=== PATIENT | male | born 1955 | race Caucasian/White ===

== ENCOUNTER 2018-08-25 16:42 | Emergency (ER) | payer OTHER ==
[~2018-08-25] VITALS: Ht 180.3 cm; Wt 84.0 kg
[~2018-08-25 16:42] MED LIST: AMLO5TAB16 PO; COR3.125T PO
[2018-08-25 16:44] VITALS: BP 183/119
== END 2018-08-25 17:02 ==
LOC: ER 16:43
DX: S00.81XA Abrasion of other part of head, initial encounter (principal); I10 Essential (primary) hypertension; G89.29 Other chronic pain; Z88.8 Allergy status to other drugs, medicaments and biological substances; Z79.899 Other long term (current) drug therapy; W01.198A Fall on same level from slipping, tripping and stumbling with subsequent striking against other object, initial encounter; Y93.89 Activity, other specified; Y92.89 Other specified places as the place of occurrence of the external cause; Y99.8 Other external cause status
CPT/HCPCS: 99283

== ENCOUNTER 2019-10-03 13:03 | Inpatient (IN) | payer OTHER ==
[2019-10-03] VITALS (10 sets, daily range): BP systolic 134–230; BP diastolic 86–160
[~2019-10-03] VITALS: Ht 175.3 cm; Wt 73.0 kg
[2019-10-03] MEDS ORDERED: aspirin 81mg tab.chew PO ONE (13:20)
[2019-10-03] MEDS ORDERED: metoprolol tartrate 1mg/ml inj IV ONE ×3 (13:20→18:55)
[2019-10-03 13:46] LABS: BASOPHILS # (AUTO) 0.1 X10'3 (0-0.2); BASOPHILS % (AUTO) 0.6 % (0-1); EOSINOPHILS % (AUTO) 0.3 % (0-6); HEMATOCRIT 35.6 % (42.0-52.0); HEMOGLOBIN 12.3 g/dl (14.0-17.9); LYMPHOCYTES # (AUTO) 1.9 X10'3 (1.1-4.8); LYMPHOCYTES % (AUTO) 16.1 % (21-51); MEAN CORPUSCULAR HGB CONC 34.6 g/dL (33.0-36.5); MEAN CORPUSCULAR VOLUME 92.7 FL (78-98); MEAN PLATELET VOLUME 8.6 FL (7.4-10.4); MONOCYTES # (AUTO) 1.3 X10'3 (0-0.9); MONOCYTES % (AUTO) 11.5 % (2-12); NEUTROPHILS # (AUTO) 8.3 X10'3 (1.8-7.7); NEUTROPHILS % (AUTO) 71.5 % (42-75); PLATELET COUNT 120 X10'3 (140-440); RED BLOOD COUNT 3.84 X10'6 (4.70-6.10); RED CELL DISTRIBUTION WIDTH 13.7 % (11.5-14.5); WHITE BLOOD COUNT 11.6 X10'3 (4.5-11.0)
[2019-10-03 14:04] LABS: ALANINE AMINOTRANSFERASE 27 U/L (12-78); ALBUMIN 3.5 G/DL (3.4-5.0); ALKALINE PHOSPHATASE 146 IU/L (46-116); ANION GAP 10 (8-16); ASPARTATE AMINO TRANSFERASE 35 U/L (10-37); BLOOD UREA NITROGEN 24 MG/DL (7-18); BUN/CREATININE RATIO 14.5 (5.4-32.0); CALCIUM 8.6 MG/DL (8.5-10.1); CHLORIDE 102 MMOL/L (99-107); CREATININE 1.65 MG/DL (0.60-1.10); GLUCOSE 98 MG/DL (70-104); POTASSIUM 3.1 MMOL/L (3.5-5.1); SODIUM 138 MMOL/L (135-145); TOTAL PROTEIN 7.1 G/DL (6.4-8.2); eGFR 42 ML/MIN
[2019-10-03] MEDS ORDERED: nitroGLYCERIN 1gm ointment UD TP ONE (14:10)
[2019-10-03] MEDS ORDERED: heparin 25,000 UNIT/250ml bag 250 ML IV SCH (14:13)
[2019-10-03] MEDS ORDERED: heparin 10,000 units/1 ML INJ IV ONE ×2 (14:15→14:25)
[2019-10-03] MEDS ORDERED: potassium Cl 20 mEq SR tablet PO STA (14:19)
[2019-10-03] MEDS ORDERED: iohexol 350MG/ML 100ml bottle IV ONE (14:30)
[2019-10-03 14:37] LABS: ETHANOL < 0.010 GM/DL (0.0-0.010)
[2019-10-03 14:40] LABS: CLARITY,URINE CLEAR (Clear); COLOR,URINE YELLOW (Yellow); GLUCOSE, URINE NEGATIVE (Neg); KETONES,URINE NEGATIVE (Neg); LEUKOCYTE ESTERASE ,URINE NEGATIVE (Neg); NITRITES, URINE NEGATIVE (Neg); OCCULT BLOOD,URINE SMALL (Neg); PROTEIN,URINE >=300 mg/dl (Neg)
[2019-10-03 14:42] LABS: UA COLLECTION TYPE CLN CATCH MIDSTREAM
[2019-10-03 14:46] LABS: PARTIAL THROMBOPLASTIN TIME 31 SECONDS (22-32)
[2019-10-03 14:58] LABS: SQUAMOUS EPITHELIAL CELL,UR FEW /LPF (FEW)
[2019-10-03 15:00] LABS: RBC,URINE 0-2 /HPF (0-2); TRANSITIONAL EPI CELLS,URINE FEW /HPF; WBC,URINE 0-4 /HPF (0-4)
[2019-10-03 15:01] LABS: BACTERIA,URINE FEW /HPF (Neg)
[2019-10-03 15:02] LABS: COARSE GRANULAR CAST 0-3 /LPF (NEGATIVE); MUCUS STRANDS MANY /LPF (Neg)
[2019-10-03] MEDS ORDERED: nitroGLYCERIN-Tridil 50MG/D5W 250 ML IV SCH (15:20)
[2019-10-03] MEDS ORDERED: AMLO10TA PO (16:08)
[2019-10-03] MEDS ORDERED: CARV6.253 PO (16:08)
[2019-10-03] MEDS ORDERED: hydrALAZINE 20mg/ml inj. IV ONE (16:45)
[2019-10-03] MEDS ORDERED: ondansetron/PF 4mg/2ml inj IV ONE (17:20)
[2019-10-03] MEDS ORDERED: magnesium 4gm in 100ml NS 100 ML IV PRN (17:25)
[2019-10-03] MEDS ORDERED: magnesium Cl slow-release 64mg tablet PO PRN (17:25)
[2019-10-03] MEDS ORDERED: magnesium 2GM in 50ml NS 50 ML IV PRN (17:25)
[2019-10-03] MEDS ORDERED: potassium Cl 20 mEq SR tablet PO PRN (17:25)
[2019-10-03] MEDS ORDERED: ondansetron/PF 4mg/2ml inj IV PRN (17:25)
[2019-10-03] MEDS ORDERED: potassium CL 10mEq/100ml bag 100 ML IV PRN ×2 (17:25)
--- NOTE | 2019-10-03 18:00 | NUR ---
Patient in room PCU 3027. I have received report from YOLY Sigala and had the opportunity to ask questions and assume patient care.
[2019-10-03 18:05] LABS: URINE AMPHETAMINE SCREEN POSITIVE (Neg); URINE BARBITUATE SCREEN NEGATIVE (Neg); URINE BENZODIAZEPINES SCREEN NEGATIVE (Neg); URINE CANNABINOID SCREEN NEGATIVE (Neg); URINE COCAINE SCREEN NEGATIVE (Neg); URINE METHADONE SCREEN NEGATIVE (Neg); URINE OPIATE SCREEN NEGATIVE (Neg); URINE PHENCYCLIDINE SCREEN NEGATIVE (Neg)
[2019-10-03] MEDS ORDERED: cloNIDine 0.1 mg tablet PO SCH (18:35)
--- NOTE | 2019-10-03 18:45 | NUR ---
Patient in room PCU 3027. I have received report from YOLY Sigala and had the opportunity to ask questions and assume patient care.
--- NOTE | 2019-10-03 18:45 | NUR ---
Problems reprioritized. Patient report given, questions answered & plan of care reviewed with Kathy FREDERICK.
--- NOTE | 2019-10-03 18:49 | NUR ---
Orientee documentation: I have reviewed and agree with interventions, assessments performed and documented by Basilia FREDERICK. Orientee Medication Administration: For this medication-pass time frame, medication were reviewed, dispensed, administered and documented per hospital policy by Basilia FREDERICK.
[2019-10-03] MEDS ORDERED: amLODIPine 5mg tablet PO ONE (19:45)
[2019-10-03] MEDS: heparin, porcine 5000 units/ml vial SQ SCH (20:10)
[2019-10-04] VITALS (22 sets, daily range): BP systolic 123–201; BP diastolic 73–138
[2019-10-04] MEDS: potassium Cl 20 mEq SR tablet PO PRN ×4 (01:28→19:51)
--- NOTE | 2019-10-04 01:34 | NUR ---
Informed Dr. Mccollum of patient's high systolic BP. He is aware and no orders were placed.
--- NOTE | 2019-10-04 01:34 | NUR ---
Patient BP extremely high upon admit to the floor, AT SHIFT CHANGE WHICH IS VERY DANGEROUS WHEN NURSES ARE TRYING TO GIVE REPORT. Patient brought up on Nitro drip at 30, heparin drip at 900, imaging was negative for PE/DVT so heparin drip DC'D. Patient potassium low and being replaced.
[2019-10-04] MEDS: acetaminophen 325mg tablet PO PRN ×2 (04:32→19:42)
[2019-10-04] MEDS ORDERED: amLODIPine 5mg tablet PO ONE ×2 (04:38→07:30)
[2019-10-04 05:11] LABS: BASOPHILS % (AUTO) 0.3 % (0-1); EOSINOPHILS % (AUTO) 0.2 % (0-6); HEMATOCRIT 31.2 % (42.0-52.0); HEMOGLOBIN 10.6 g/dl (14.0-17.9); LYMPHOCYTES # (AUTO) 1.7 X10'3 (1.1-4.8); LYMPHOCYTES % (AUTO) 14.4 % (21-51); MEAN CORPUSCULAR HEMOGLOBIN 31.6 PG (27.0-31.0); MEAN CORPUSCULAR HGB CONC 34.1 g/dL (33.0-36.5); MEAN CORPUSCULAR VOLUME 92.8 FL (78-98); MEAN PLATELET VOLUME 9.3 FL (7.4-10.4); MONOCYTES # (AUTO) 1.6 X10'3 (0-0.9); MONOCYTES % (AUTO) 12.8 % (2-12); NEUTROPHILS # (AUTO) 8.8 X10'3 (1.8-7.7); NEUTROPHILS % (AUTO) 72.3 % (42-75); PLATELET COUNT 130 X10'3 (140-440); RED BLOOD COUNT 3.36 X10'6 (4.70-6.10); RED CELL DISTRIBUTION WIDTH 13.4 % (11.5-14.5); WHITE BLOOD COUNT 12.2 X10'3 (4.5-11.0)
[2019-10-04 05:19] LABS: ANION GAP 12 (8-16); BLOOD UREA NITROGEN 23 MG/DL (7-18); BUN/CREATININE RATIO 14.2 (5.4-32.0); CALCIUM 8.5 MG/DL (8.5-10.1); CHLORIDE 104 MMOL/L (99-107); CREATININE 1.62 MG/DL (0.60-1.10); GLUCOSE 122 MG/DL (70-104); MAGNESIUM 2.1 MG/DL (1.5-2.4); POTASSIUM 3.1 MMOL/L (3.5-5.1); SODIUM 139 MMOL/L (135-145); TOTAL CARBON DIOXIDE 23.3 MMOL/L (24-32); eGFR 43 ML/MIN
--- NOTE | 2019-10-04 05:26 | NUR ---
it is possible that this patient has undiagnosed sleep apnea. Noted respirations dropped at times and it was a longer period before breathing again at times, Pt stated he does not have apnea diagnosis.
--- NOTE | 2019-10-04 05:30 | NUR ---
CALLED Santos, GAVE AMLODIPINE, BLOOD PRESSURE STILL ELEVATED, HE SAID THE MEDICATION NEEDS MORE TIME TO WORK.
--- NOTE | 2019-10-04 06:31 | NUR ---
Patient in room PCU 3027. I have received report from YOLY Sigala and had the opportunity to ask questions and assume patient care.
--- NOTE | 2019-10-04 06:46 | NUR ---
Patient in room PCU 3027. I have received report from YOLY Chavez and had the opportunity to ask questions and assume patient care. Patient asleep in bed and in no acute distress.
--- NOTE | 2019-10-04 07:15 | NUR ---
Paged Dr. Cedillo regarding patient's BP. PAGER ID: [phone] MESSAGE: Johnny Nixon. Rm. [id number]. Patient's manual BP on both arms are 200/120. Thanks. Basilia FREDERICK x [phone]
[2019-10-04] MEDS ORDERED: metoprolol tartrate 1mg/ml inj IV ONE (07:30)
[2019-10-04] MEDS ORDERED: cloNIDine 0.1 mg tablet PO ONE (07:30)
--- NOTE | 2019-10-04 07:30 | NUR ---
Orders for metoprolol 10mg, norvasc 5mg, and clonidine 0.3mg put in per Dr. Cedillo.
[2019-10-04] MEDS: heparin, porcine 5000 units/ml vial SQ SCH ×2 (07:48→19:40)
[2019-10-04] MEDS ORDERED: metoprolol tartrate 50mg tablet PO SCH (08:00)
[2019-10-04] MEDS: K and/or MAG REPLACEMENT MC SCH (08:00)
--- NOTE | 2019-10-04 08:00 | NUR ---
Per Monalisa Werner, monitor patient's vitals before giving his dose of amlodipine and coreg this morning.
--- NOTE | 2019-10-04 09:31 | NUR ---
Paged Dr. Cedillo regarding patient's BP. PAGER ID: [phone] MESSAGE: Johnny Nixon. Rm. [phone]. Patient's manual BP has come down to 142/92. Thank you. Basilia FREDERICK x [phone]
[2019-10-04] MEDS: carvedilol 6.25mg tablet PO SCH ×2 (11:00→19:39)
[2019-10-04] MEDS: amLODIPine 5mg tablet PO SCH (11:00)
[2019-10-04] MEDS: cloNIDine 0.1 mg tablet PO SCH ×2 (12:38→21:48)
--- NOTE | 2019-10-04 16:30 | NUR ---
Spoke with Dr. Cedillo via telephone, informed the MD of the patients BP 124/76. New orders: reduce the NTG gtt to 10mcg/min aka 3mL/hr. Will follow orders and address patients medication changes. Patient is sitting at the bedside in his chair napping, there is a chest rise/fall present. Will continue to monitor patient.
[2019-10-04] MEDS ORDERED: furosemide 20 MG/2 ML vial IV ONE (16:35)
[2019-10-04] MEDS: nitroGLYCERIN-Tridil 50MG/D5W 250 ML IV SCH (16:43)
--- NOTE | 2019-10-04 17:56 | NUR ---
Orientee documentation: I have reviewed and agree with all interventions, assessments performed and documented by Kristy Freire RN. Orientee Medication Administration: For this medication-pass time frame, all medication were reviewed, dispensed, administered and documented per hospital policy by Kristy Freire RN.
--- NOTE | 2019-10-04 18:31 | NUR ---
Problems reprioritized. Patient report given, questions answered & plan of care reviewed with YOLY Ma. Patient stable at transfer of care.
[2019-10-05] VITALS (14 sets, daily range): BP systolic 111–141; BP diastolic 69–100
[2019-10-05] MEDS: nitroGLYCERIN-Tridil 50MG/D5W 250 ML IV SCH (03:22)
--- NOTE | 2019-10-05 05:09 | NUR ---
Patient in room PCU 3027. I have received report from Zakiya FREDERICK and Basilia West RN and had the opportunity to ask questions and assume patient care.
[2019-10-05 05:58] LABS: BASOPHILS % (AUTO) 0.3 % (0-1); EOSINOPHILS # (AUTO) 0.1 X10'3 (0-0.9); EOSINOPHILS % (AUTO) 0.5 % (0-6); HEMATOCRIT 29.5 % (42.0-52.0); HEMOGLOBIN 10.2 g/dl (14.0-17.9); LYMPHOCYTES # (AUTO) 1.7 X10'3 (1.1-4.8); LYMPHOCYTES % (AUTO) 16.4 % (21-51); MEAN CORPUSCULAR HEMOGLOBIN 32.2 PG (27.0-31.0); MEAN CORPUSCULAR HGB CONC 34.4 g/dL (33.0-36.5); MEAN CORPUSCULAR VOLUME 93.5 FL (78-98); MEAN PLATELET VOLUME 9.5 FL (7.4-10.4); MONOCYTES # (AUTO) 1.3 X10'3 (0-0.9); NEUTROPHILS # (AUTO) 7.4 X10'3 (1.8-7.7); NEUTROPHILS % (AUTO) 70.8 % (42-75); PLATELET COUNT 132 X10'3 (140-440); RED BLOOD COUNT 3.16 X10'6 (4.70-6.10); RED CELL DISTRIBUTION WIDTH 13.8 % (11.5-14.5); WHITE BLOOD COUNT 10.5 X10'3 (4.5-11.0)
[2019-10-05 05:59] LABS: ALBUMIN 2.9 G/DL (3.4-5.0); ANION GAP 12 (8-16); BLOOD UREA NITROGEN 29 MG/DL (7-18); BUN/CREATININE RATIO 16.3 (5.4-32.0); CALCIUM 8.5 MG/DL (8.5-10.1); CHLORIDE 104 MMOL/L (99-107); CREATININE 1.78 MG/DL (0.60-1.10); GLUCOSE 108 MG/DL (70-104); MAGNESIUM 2.2 MG/DL (1.5-2.4); POTASSIUM 3.4 MMOL/L (3.5-5.1); SODIUM 138 MMOL/L (135-145); TOTAL CARBON DIOXIDE 22.4 MMOL/L (24-32); eGFR 39 ML/MIN
--- NOTE | 2019-10-05 06:15 | NUR ---
Patient in room PCU 3027. I have received report from Eli and had the opportunity to ask questions and assume patient care.
--- NOTE | 2019-10-05 06:28 | NUR ---
Problems reprioritized. Patient report given, questions answered & plan of care reviewed with YOLY Bella.
--- NOTE | 2019-10-05 06:53 | NUR ---
Patient in room PCU 3027. I have received report from Francesca FREDERICK and had the opportunity to ask questions and assume patient care.
[2019-10-05] MEDS: cloNIDine 0.1 mg tablet PO SCH ×3 (07:31→21:01)
[2019-10-05] MEDS: carvedilol 6.25mg tablet PO SCH (07:32)
[2019-10-05] MEDS: potassium Cl 20 mEq SR tablet PO PRN ×3 (07:32→19:56)
[2019-10-05] MEDS: amLODIPine 5mg tablet PO SCH (07:32)
[2019-10-05] MEDS: heparin, porcine 5000 units/ml vial SQ SCH ×2 (07:33→19:56)
[2019-10-05] MEDS ORDERED: acetaminophen 325mg tablet PO PRN (07:55)
--- NOTE | 2019-10-05 07:55 | NUR ---
Notified MD of pt pain 05/10, pt requesting tylenol for pain. Order received for tylenol for pain -10. Also received orders to recheck pt's BP in 30 minutes, if diastolic is less than 90, please titrate nitro to 5mcg/hr.
[2019-10-05] MEDS ORDERED: amLODIPine 5mg tablet PO SCH (08:00)
[2019-10-05] MEDS: K and/or MAG REPLACEMENT MC SCH (08:11)
[2019-10-05] MEDS ORDERED: nitroGLYCERIN-Tridil 50MG/D5W 250 ML IV SCH (08:45)
--- NOTE | 2019-10-05 11:58 | NUR ---
Student documentation: I have reviewed and agree with all interventions, assessments performed and documented by Amina Cerda [facility].
--- NOTE | 2019-10-05 11:58 | NUR ---
Student Medication Administration: For this medication-pass time frame, all medication were reviewed, dispensed, administered and documented per hospital policy by Amina MARQUEZ [facility].
--- NOTE | 2019-10-05 18:33 | NUR ---
Patient in room PCU 3027. I have received report from YOLY Bella and had the opportunity to ask questions and assume patient care.
--- NOTE | 2019-10-05 18:39 | NUR ---
Problems reprioritized. Patient report given, questions answered & plan of care reviewed with Francesca FREDERICK.
[2019-10-05] MEDS: carVEDilol 12.5mg tablet PO SCH (19:56)
[2019-10-06] VITALS (9 sets, daily range): BP systolic 119–159; BP diastolic 84–106
--- NOTE | 2019-10-06 04:55 | NUR ---
MD called and notified about the patient's blood pressure trends of SBP no from 120s-145s, and DBP from 88-106. No new orders at this time. Will continue to monitor closely.
[2019-10-06 05:14] LABS: BASOPHILS % (AUTO) 0.4 % (0-1); EOSINOPHILS # (AUTO) 0.1 X10'3 (0-0.9); EOSINOPHILS % (AUTO) 0.7 % (0-6); HEMOGLOBIN 9.7 g/dl (14.0-17.9); LYMPHOCYTES # (AUTO) 2.1 X10'3 (1.1-4.8); LYMPHOCYTES % (AUTO) 20.3 % (21-51); MEAN CORPUSCULAR HEMOGLOBIN 32.2 PG (27.0-31.0); MEAN CORPUSCULAR HGB CONC 34.6 g/dL (33.0-36.5); MEAN PLATELET VOLUME 9.6 FL (7.4-10.4); MONOCYTES % (AUTO) 9.5 % (2-12); NEUTROPHILS # (AUTO) 7.1 X10'3 (1.8-7.7); NEUTROPHILS % (AUTO) 69.1 % (42-75); PLATELET COUNT 175 X10'3 (140-440); RED BLOOD COUNT 3.01 X10'6 (4.70-6.10); RED CELL DISTRIBUTION WIDTH 13.6 % (11.5-14.5); WHITE BLOOD COUNT 10.2 X10'3 (4.5-11.0)
[2019-10-06 05:25] LABS: ALBUMIN 2.8 G/DL (3.4-5.0); ANION GAP 12 (8-16); BLOOD UREA NITROGEN 34 MG/DL (7-18); BUN/CREATININE RATIO 18.4 (5.4-32.0); CALCIUM 8.8 MG/DL (8.5-10.1); CHLORIDE 103 MMOL/L (99-107); CREATININE 1.85 MG/DL (0.60-1.10); GLUCOSE 106 MG/DL (70-104); MAGNESIUM 2.3 MG/DL (1.5-2.4); POTASSIUM 4.1 MMOL/L (3.5-5.1); SODIUM 137 MMOL/L (135-145); TOTAL CARBON DIOXIDE 22.5 MMOL/L (24-32); eGFR 37 ML/MIN
--- NOTE | 2019-10-06 06:09 | NUR ---
Problems reprioritized. Patient report given, questions answered & plan of care reviewed with YOLY Bella.
--- NOTE | 2019-10-06 06:15 | NUR ---
Patient in room PCU 3027. I have received report from Francesca FREDERICK and had the opportunity to ask questions and assume patient care.
[2019-10-06] MEDS: carVEDilol 12.5mg tablet PO SCH ×2 (07:52→21:15)
[2019-10-06] MEDS: amLODIPine 5mg tablet PO SCH (07:52)
[2019-10-06] MEDS: cloNIDine 0.1 mg tablet PO SCH ×3 (07:52→21:15)
[2019-10-06] MEDS: heparin, porcine 5000 units/ml vial SQ SCH ×2 (07:53→21:17)
[2019-10-06] MEDS: K and/or MAG REPLACEMENT MC SCH (07:54)
--- NOTE | 2019-10-06 18:30 | NUR ---
Problems reprioritized. Patient report given, questions answered & plan of care reviewed with Francesca FREDERICK.
[2019-10-06] MEDS ORDERED: Melatonin 3mg tablet PO SCH (21:00)
[2019-10-07] VITALS: BP 127/97
[2019-10-07 02:00] VITALS: BP 124/96
[2019-10-07 04:00] VITALS: BP 146/92
[2019-10-07 06:00] VITALS: BP 145/95
--- NOTE | 2019-10-07 06:14 | NUR ---
Problems reprioritized. Patient report given, questions answered & plan of care reviewed with YOLY Bella.
--- NOTE | 2019-10-07 06:45 | NUR ---
Patient in room PCU 3027. I have received report from Francesca FREDERICK and had the opportunity to ask questions and assume patient care.
[2019-10-07 07:27] LABS: BASOPHILS % (AUTO) 0.4 % (0-1); EOSINOPHILS # (AUTO) 0.1 X10'3 (0-0.9); EOSINOPHILS % (AUTO) 0.8 % (0-6); HEMATOCRIT 31.3 % (42.0-52.0); HEMOGLOBIN 10.5 g/dl (14.0-17.9); LYMPHOCYTES # (AUTO) 1.8 X10'3 (1.1-4.8); LYMPHOCYTES % (AUTO) 19.6 % (21-51); MEAN CORPUSCULAR HGB CONC 33.7 g/dL (33.0-36.5); MEAN CORPUSCULAR VOLUME 95.1 FL (78-98); MEAN PLATELET VOLUME 9.5 FL (7.4-10.4); MONOCYTES # (AUTO) 0.7 X10'3 (0-0.9); MONOCYTES % (AUTO) 8.1 % (2-12); NEUTROPHILS # (AUTO) 6.5 X10'3 (1.8-7.7); NEUTROPHILS % (AUTO) 71.1 % (42-75); PLATELET COUNT 213 X10'3 (140-440); RED BLOOD COUNT 3.29 X10'6 (4.70-6.10); RED CELL DISTRIBUTION WIDTH 13.8 % (11.5-14.5); WHITE BLOOD COUNT 9.2 X10'3 (4.5-11.0)
[2019-10-07] MEDS: carVEDilol 12.5mg tablet PO SCH (07:41)
[2019-10-07] MEDS: cloNIDine 0.1 mg tablet PO SCH ×2 (07:41→13:00)
[2019-10-07] MEDS: amLODIPine 5mg tablet PO SCH (07:41)
[2019-10-07] MEDS: heparin, porcine 5000 units/ml vial SQ SCH (07:42)
[2019-10-07 07:45] LABS: ALBUMIN 3.2 G/DL (3.4-5.0); ANION GAP 10 (8-16); BLOOD UREA NITROGEN 35 MG/DL (7-18); BUN/CREATININE RATIO 18.8 (5.4-32.0); CALCIUM 8.5 MG/DL (8.5-10.1); CHLORIDE 103 MMOL/L (99-107); CREATININE 1.86 MG/DL (0.60-1.10); GLUCOSE 116 MG/DL (70-104); LACTATE DEHYDROGENASE 247 U/L (85-227); MAGNESIUM 2.3 MG/DL (1.5-2.4); SODIUM 137 MMOL/L (135-145); TOTAL CARBON DIOXIDE 23.9 MMOL/L (24-32); eGFR 37 ML/MIN
[2019-10-07] MEDS: K and/or MAG REPLACEMENT MC SCH (08:00)
[2019-10-07 08:26] LABS: HIV ANTIBODY 1&2 RAPID NON-REACTIVE (Neg)
[2019-10-07 08:49] LABS: RHEUM FACTOR QUAL REFLEX TITER NEGATIVE (Neg)
[2019-10-07 11:00] VITALS: BP 122/87
[2019-10-07] MEDS ORDERED: NOR5T PO (12:28)
[2019-10-07] MEDS ORDERED: METO-539 PO (12:28)
--- NOTE | 2019-10-07 14:32 | NUR ---
Pt is stable for discharge per md orders, discharge instructions reviewed w/ pt and all questions answered, new medication prescriptions written out and [facility] to pt [facility], tele monitor 45 removed and returned, PIV dc'ed and clean dry dressing in place, pt discharges to home @ 1415, wheeled down to [facility] w/ hospital staff to private vehicle w/ daughter, all belongings w/ pt at time of discharge.
[2019-10-08 06:08] LABS: RPR Non Reactive (Non Reactive)
[2019-10-08 08:08] LABS: ANTISTREPTOLYSIN O AB 33.8 IU/mL (0.0-200.0); COMPLEMENT C3, SERUM 161 mg/dL (82-167); COMPLEMENT C4, SERUM 35 mg/dL (14-44)
[2019-10-08 11:08] LABS: HBSAG SCREEN Negative (Negative); HEPATITIS C ANTIBODY <0.1 s/co ratio (0.0-0.9)
[2019-10-10 09:10] LABS: A/G RATIO 0.9 (0.7-1.7); ALBUMIN 2.9 g/dL (2.9-4.4); BETA GLOBULIN 1.1 g/dL (0.7-1.3); GAMMA GLOBULIN 0.6 g/dL (0.4-1.8); GLOBULIN, TOTAL 3.2 g/dL (2.2-3.9); M-SPIKE Not Observed g/dL (Not Observed); PROTEIN, TOTAL, SERUM 6.1 g/dL (6.0-8.5)
[2019-10-10 17:17] LABS: ANTINUCLEAR ANTIBODIES Negative (Negative)
[2019-10-11 11:16] LABS: ALDOSTERONE 9.2 ng/dL (0.0-30.0)
[2019-10-12 15:34] LABS: RENIN, PLASMA 2.694 ng/mL/hr (0.167-5.380)
[2019-10-12 15:34] LABS: ATYPICAL PANCA <1:20 titer (Neg:<1:20); CYTOPLASMIC (C-ANCA) <1:20 titer (Neg:<1:20); PERINUCLEAR (P-ANCA) <1:20 titer (Neg:<1:20)
== END 2019-10-07 14:15 | disposition home or self-care (01) | DRG 682 ==
LOC: ER 13:03 → ED HOLD 15:16 → EDBEDREQ 16:15 → PCU 3S 18:05
PROVIDERS: ADMIT Internal Medicine; ATTEND Internal Medicine
DX: N17.0 Acute kidney failure with tubular necrosis (principal); I50.31 Acute diastolic (congestive) heart failure; I13.0 Hypertensive heart and chronic kidney disease with heart failure and stage 1 through stage 4 chronic kidney disease, or unspecified chronic kidney disease; G89.29 Other chronic pain; M54.9 Dorsalgia, unspecified; J44.9 Chronic obstructive pulmonary disease, unspecified; F17.210 Nicotine dependence, cigarettes, uncomplicated; F15.10 Other stimulant abuse, uncomplicated; E87.6 Hypokalemia; F10.20 Alcohol dependence, uncomplicated; N18.9 Chronic kidney disease, unspecified; I16.0 Hypertensive urgency; Z88.8 Allergy status to other drugs, medicaments and biological substances; Z98.42 Cataract extraction status, left eye; Z98.41 Cataract extraction status, right eye; Z71.51 Drug abuse counseling and surveillance of drug abuser; Z71.6 Tobacco abuse counseling; Z79.899 Other long term (current) drug therapy
CPT/HCPCS: 36415; 71045; 71275; 76775; 80048; 80053; 80305; 80320; 81001; 82088; 83615; 83735; 83880; 84155; 84165; 84244; 84443; 84484; 85025; 85610; 85651; 85730; 86038; 86060; 86160; 86256; 86430; 86592; 86703; 86803; 87081; 87340; 93005; 93306; 93971; 93975; 96374; 99291; G0378; J0360; J1644; J1940; J2405; J3490; Q9967